=== PATIENT | female | born 1975 | race Caucasian/White ===

== ENCOUNTER 2023-04-03 03:48 | Emergency (ER) | payer MEDICAID, OTHER ==
[~2023-04-03] VITALS: Ht 160 cm; Wt 66.7 kg
--- NOTE | 2023-04-03 04:00 | NUR ---
PT IN [facility]; DR LALA LEDESMA AWARE
--- NOTE | 2023-04-03 04:01 | NUR ---
BIBS C/O "SPIDER BITE" TO LEFT HIP & GROIN X4DAYS. PT A/OX4. TOLERATING R/A WELL WITH NO RESP DISTRESS. SAFETY MEASURES IN PLACE.
[2023-04-03] MEDS ORDERED: HYDROCODONE/APAP 5/325MG TABLET ONE (04:19)
[2023-04-03] MEDS ORDERED: HYDROCODONE/APAP 5/325MG TABLET PO ONE (04:30)
--- NOTE | 2023-04-03 04:38 | NUR ---
DR OCONNOR AT PT'S BEDSIDE FOR I&D
[2023-04-03] MEDS ORDERED: KETO10TA2 PO (04:46)
[2023-04-03] MEDS ORDERED: CLIN150C16 PO (04:46)
[2023-04-03] MEDS ORDERED: CLINDAMYCIN HCL 150 MG CAPSULE ONE (04:50)
[2023-04-03] MEDS ORDERED: CLINDAMYCIN HCL 150 MG CAPSULE PO ONE (05:00)
--- NOTE | 2023-04-03 05:00 | NUR ---
Patient discharged to home in stable condition. RX Written and verbal after care instructions given. Patient verbalizes understanding of instruction.
[2023-04-03 05:01] VITALS: BP 127/95
== END 2023-04-03 05:35 | disposition home or self-care (01) ==
LOC: ER 03:52
DX: L02.211 Cutaneous abscess of abdominal wall (principal); F17.200 Nicotine dependence, unspecified, uncomplicated; Z88.2 Allergy status to sulfonamides
CPT/HCPCS: 99284; 10060; A6403; A6407